=== PATIENT | male | born 1990 | race African-American/Black ===

== ENCOUNTER 2021-10-09 17:40 | Emergency (ER) | payer OTHER ==
[~2021-10-09] VITALS: Ht 170.2 cm; Wt 112.4 kg
[2021-10-09] MEDS ORDERED: DOXYCYCLINE HYCLATE 100MG TABLET PO ONE (20:30)
[2021-10-09] MEDS ORDERED: DOXY-443 PO (20:32)
[2021-10-09 20:44] VITALS: BP 159/90
[2021-10-09 21:59] LABS: GC DNA AMPLIFICATION NEGATIVE (NEGATIVE)
== END 2021-10-09 20:45 | disposition home or self-care (01) ==
LOC: M ED 17:40
DX: N50.812 Left testicular pain (principal); N50.89 Other specified disorders of the male genital organs; Z98.52 Vasectomy status

== ENCOUNTER → 2022-08-22 | Outpatient (REF) | payer OTHER ==
[~2022-08-22] MED LIST: DOXY-443 PO
[2022-08-22 14:39] LABS: SEMEN APPEARANCE OPAQUE (OPAQUE); SEMEN VOLUME 1.3 ml (2.0-5.0)
[2022-08-22 14:40] LABS: SEMEN VISCOSITY LIQUID (LIQUID); SEMEN pH 8.5 (7.0-8.0); WBC CONCENTRATION <=1 M/ml (<=1 M/ml)
== END ==
LOC: M LAB REF 13:32
PROVIDERS: ATTEND General Practice
DX: Z30.2 Encounter for sterilization (principal)